=== PATIENT | male | born 1990 | race Caucasian/White ===

== ENCOUNTER 2020-06-25 20:04 | Emergency (ER) | payer OTHER, BC ==
[~2020-06-25] VITALS: Ht 190.5 cm; Wt 122.5 kg
[2020-06-25] MEDS ORDERED: ROSUVASTATIN CA40 MG PO (20:20)
[2020-06-25] MEDS ORDERED: NORCO 5-325 TA1 EACH PO (21:27)
[2020-06-25] MEDS ORDERED: DICLOFENAC SODI75 MG PO (21:27)
== END 2020-06-25 21:40 | disposition home or self-care (01) ==
LOC: ED 20:04
DX: S80.01XA Contusion of right knee, initial encounter (principal); W22.8XXA Striking against or struck by other objects, initial encounter; E78.5 Hyperlipidemia, unspecified; Z79.899 Other long term (current) drug therapy
CPT/HCPCS: 73560; 99283-25